=== PATIENT | female | born 1980 | race Caucasian/White ===

== ENCOUNTER 2025-01-21 06:37 | Outpatient (OUT) | payer OTHER, SELFPAY ==
--- OUTSIDE RECORDS SUMMARY | 2025-01-21 06:44 | XMS_ITS | Clinical Summary ---
Author Organization [facility] Address [address] [place] [address] Care Team Providers Care Wireless Network Engineer Name Role Phone Raji Stephen MD Primary Care Provider [phone] Nicolasa Valdivia Unavailable [phone] Allergies No known active allergies Medications MedicationSigDispense QuantityRefillsLast FilledStart DateEnd DateStatus levothyroxine (Synthroid, Levoxyl) 88 MCG tablet Indications:Acquired hypothyroidismTake 1 tablet (88 mcg) by mouth Daily 100 tablet 5Active irbesartan-hydroCHLOROthiazide (Avalide) 300-12.5 MG tablet Indications:Essential hypertensionTake 1 tablet by mouth Daily 100 tablet 5Active cyclobenzaprine (Flexeril) 10 MG tablet Indications:Spasm of right trapezius muscleTake 1 tablet (10 mg) by mouth 3 (three) times a day as needed for muscle spasms for up to 10 days 30 tablet 5Active predniSONE (Deltasone) 10 MG tablet Indications:Achilles tendinitis of both lower extremitiesTake twice daily for 5 days, then take once daily for 5 days. 15 tablet 5Active meloxicam (Mobic) 15 MG tablet Indications:Achilles tendinitis of both lower extremitiesTake 1 tablet (15 mg) by mouth Daily 90 tablet 515Active Active Problems ProblemNoted DateDiagnosed DateTrapezius muscle spasm03/03/2023 Assessment & Plan (03/03/2023 11:38 AM EST): Will add PT Will do Orphenadrine and Toradol injection discontinue Zanaflex and change to Baclofen Abnormal ycmdkgzgn83/17/2023Essential wksxjvqwvhso75/17/2023Migraine without aura and without status migrainosus, not gufckanmwkn83/17/2023Morbidly obese 11/06/2022Severe acute respiratory syndrome coronavirus 2 (SARS-CoV-2) detected 11/06/20228336Ybrbbluyzsrzsh33/29/2011 Resolved Problems ProblemNoted DateDiagnosed DateResolved DateAspiration pneumonia of right middle lobe due to regurgitated food/ Assessment & Plan (04/14/2023 10:41 AM EST): Add Probiotic to help replenish the good bacteria that are destroyed by the Antibiotics Florastor Florajen Align or try Activia in Yogurt Probiotics reduce the risk of antibiotic induced diarrhea If NB consider Xray Consider Bronchoscopy Strain of right trapezius bfgmwv47Injury of right brachial qlyuyw97ute low back pain with nwwjoonf95 Encounters DateTypeDepartmentCare EmeiVmyzizxdprf01/29/2025 2:30 PM EDTOffice Visit [facility] [address] [place] [address] Dinh Raygoza, DPM Achilles tendinitis of both lower extremities (Primary Dx); Pain in both feet; Equinus contracture of left ankle; Equinus contracture of right ankle12/19/2024amboo flowsheet [facility] [address] [place] [address] Dinh Raygoza DPM 12/19/20245771Ssjvzx10/26/9550Dmbqij06/22/7366Pyvzah65/20/2025 4:15 PM EDTAncillary Procedure [facility] [address] [place] [address] 11/09/2024 4:10 PM EDTAncillary Procedure [facility] [address] [place] [address] 11/09/2024 3:30 PM EDTOffice Visit [facility] [address] [place] [address] Dinh Raygoza DPM Achilles tendinitis of both lower extremities (Primary Dx); Bursitis of right ankle; Chronic pain of right ankle; Pain in both feet; Equinus contracture of left ankle; Equinus contracture of right ankle11/09/2024amboo flowsheet [facility] [address] [place] [address] Dinh Raygoza DPM 11/09/20241668Rszeos04/19/2025Travelfrom Last 3 Months Family History Medical HistoryRelationNameCommentsOvarian cancerMaternal GrandmotherThyroid diseaseMotherMotherRelationNameStatusCommentsMaternal GrandmotherMotherMother AliveSisterAliveSon 1x3Son 2AliveSon 3Alive Social History Tobacco UseTypesPacks/DayYears UsedDateSmoking Tobacco: NeverSmokeless Tobacco: Never Tobacco Cessation:Counseling Given: Not Answered Alcohol UseStandard Drinks/WeekCommentsYes2 (1 standard drink = 0.6 oz pure alcohol)Caffeine intake: rarelyHumiliation, Afraid, Rape, and Kick questionnaire AnswerDate RecordedWithin the last year, have you been afraid of your partner or ex-partner?No11/07/2022Within the last year, have you been humiliated or emotionally abused in other ways by your partner or ex-partner?No11/07/2022 Within the last year, have you been kicked, hit, slapped, or otherwise physically hurt by your partner or ex-partner?No11/07/2022Within the last year, have you been raped or forced to have any kind of sexual activity by your part ner or ex-partner?11/07/2022Social Connection and Isolation PanelAnswerDate RecordedIn a typical week, how many times do you talk on the phone with family, friends, or neighbors?More than three times a week11/07/2022How often do you get together with friends or relatives?Once a week11/07/2022How often do you attend jehovah's witness or restorationism services?1 to 4 times per year11/07/2022o you belong to any clubs or organizations such as jehovah's witness groups, unions, fraternal or athletic grover ups, or school groups?No11/07/2022How often do you attend meetings of the clubs or organizations you belong to?Patient qulmdqfg74/18/2023re you , , , , never , or living with a partner? 11/07/2022UDIT-CAnswerDate RecordedQ1: How often do you have a drink containing alcohol?Monthly or less01/12/2023Q2: How many drinks containing alcohol do you have on a typical day when you are drinking?1 or Q3: How often do you have six or more drinks on one occasion?Less than ekdxaky3501/12/2023Overall Financial Resource Strain (CARDIA)AnswerDate RecordedHow hard is it for you to pay for the very basics like food, housing, medical care, and heating?Not hard at all11/07/2022HQ-2AnswerDate RecordedPatient Health Questionnaire-2 Score0 10/13/2024[facility] [place] [facility] - Occupational Stress QuestionnaireAnswerDate RecordedDo you feel stress - tense, restless, nervous, or anxious, or unable to sleep at night because yourmind is troubled all the time - these days?To some psvqwp6211/07/2022Exercise Vital SignAnswerDate Recorded On average, how many days per week do you engage in moderate to strenuous exercise (like a brisk walk)?3 days11/07/2022On average, how many minutes do you engage in exercise at this level?40 min11/07/2022Hunger Vital SignAnswerDate RecordedWithin the past 12 months, you worried that your food would run out before you got the money to buymore.Never true11/07/2022Within the past 12 months, the food you bought just didn't last and you didn't have money to get more.Never true11/07/2022RAPARE - TransportationAnswerDate RecordedIn the past 12 months, has lack of transportation kept you from medical appointments or from getting medications?No11/07/2022In the past 12 months, has lack of transportation kept you from meetings, work, or from getting things needed for daily living?No11/07/2022Housing Stability Vital SignAnswerDate RecordedIn the last 12 months, was there a time when you were not able to pay the mortgage or rent on time?No11/07/2022In the last 12 months, how many places have you lived?1 11/07/2022In the last 12 months, was there a time when you did not have a steady place to sleep or slept in magnoliaelter (including now)?No11/07/2022Comments NoSex and Gender InformationValueDate RecordedSex Assigned at BirthFemale 10/31/2022 7:42 AM EDTLegal RdqDajzmu29/15/2023 7:20 PM EDTGender IdentityFemale 10/31/2022 7:42 AM EDTSexual DyxxzxlkquePhegfsgw11/11/2023 7:42 AM EDT Last Filed Vital Signs Vital SignReadingTime TakenCommentsBlood Rltnlxdg721/8407 2:00 PM EDT Bwiiu032310/13/2024 2:00 PM JOLYtthpqamyas18.1 ??C (98.8 ??F)04/14/2023 10:19 AM ESTRespiratory Nmqf837710/13/2024 2:00 PM EDTOxygen Ujncpcwwiw93%10/13/2024 2:00 PM EDTInhaled Oxygen Concentration--Sqsqax214 kg (303 lb)12/19/2024 2:26 PM EDT Yqqeno427 cm (5' 8.5 )12/19/2024 2:26 PM EDTBody Mass Index45. 2:26 PM EDT Plan of Treatment DateTypeDepartmentCare Team (Latest Contact Info)Mfggqqakmvm08/10/2025 4:00 PM ESTOffice Visit [facility] [address] [place] [address] Dinh Raygoza DPM [address] [place] [address] Health MaintenanceDue DateLast DoneCommentsCT Vtcvjznrxsgv08/30/1980Colonoscopy 1979FIT1979FOBT1979 5943Oztummawrbkws92/30/1980Influenza Vaccine (#1)11/21/20249936Jlxqkuupu16/03/35611405/23/2024, 02/03/2023, 01/15/2022, Additional history existsPap Smear/3Colorectal Cancer Bgsnfqcrd86/07/2028 FIT-DNAervical Cancer Vuulkicrs56/10/2030HPV/Cotest , 01/12/2023, 01/07/2022, Additional history exists Procedures Procedure NamePriorityDate/TimeAssociated DiagnosisCommentsXR CALCANEUS 2 VIEWS OKTHYIgbnokg16/20/2025 4:06 PM EDT Achilles tendinitis of both lower extremities Pain in both feet XR CALCANEUS 2 VIEWS BAFYTkraaqn47/20/2025 4:06 PM EDT Achilles tendinitis of both lower extremities Pain in both feet LAB COLOGUARD?? COLON CANCER UCKYUVApyyten08/07/2025 10:04 AM EDT Colon cancer screening BI MAMMOGRAM SCREENING TOMOSYNTHESIS BDOOQZXWIDjpybrj22/03/2025 5:54 PM EST Encounter for screening mammogram for malignant neoplasm of breast IGP, APT HPV,RFX 16/18,85Umdxykw67/10/2025 12:00 AM EST Encounter for gynecological examination without abnormal finding Encounter for screening for cervical cancer THINPREP TIS PAP W/REFL HPV MRNA E6/T4Sjqdmei21/23/2023 4:25 PM EDT Screening for malignant neoplasm of cervix Encounter for gynecological examination without abnormal finding from Last 3 Months or Most Recently Relevant to Health Maintenance Results * XR calcaneus 2 views right (11/09/2024 4:06 PM EDT)Anatomical RegionLaterality ModalityLower Extremities, CalcaneusRightRadiographic ImagingSpecimen (Source) Anatomical Location / LateralityCollection Method / VolumeCollection Time Received Time Narrative 11/09/2024 4:54 PM EDT Imaging Result: Lateral, calcaneal axial views are weight-bearing. ??Decreased calcaneal inclination and increased talar declination. ??Large enthesophyte at the insertion of the Achilles tendon and plantar fascia. ??Os trigonum noted over the posterior talar process. ??Calcifications noted at the insertion of the Achilles tendon. ??No fractures or dislocations noted. Authorizing ProviderResult TypeResult StatusJohnson [facility] XR PROCEDURESFinal Result * XR calcaneus 2 views left (11/09/2024 4:06 PM EDT)Anatomical RegionLaterality ModalityLower Extremities, CalcaneusLeftRadiographic ImagingSpecimen (Source) Anatomical Location / LateralityCollection Method / VolumeCollection Time Received Time Narrative 11/09/2024 4:53 PM EDT Imaging Result: Lateral, calcaneal axial views are weight-bearing. ??Decreased calcaneal inclination, increased talar declination. ??Os trigonum noted over the posterior talar process. ??Extremely large enthesophyte at the insertion of the Achilles tendon with a an enthesophyte at the insertion of the plantar fascia. ??Calcifications noted of the distal aspect of the Achilles tendon at the insertion. ??No fractures or dislocations noted. Authorizing ProviderResult TypeResult StatusOttawa County Health Center DPMI XR PROCEDURESFinal Result * Cologuard?? colon cancer screening (08/27/2024 10:04 AM EDT)ComponentValueRef RangeTest MethodAnalysis TimePerformed AtPathologist SignatureNONINV COLON CA DNA+OCC BLD SCRN STL-BHTAscqzliaAadkxuyk51/13/2025 12:34 PM EDTEXRezolve (CLIA #:[id number])Comment: The Cologuard (TM) test was performed on this specimen. NEGATIVE TEST RESULT. A negative Cologuard result indicates a low likelihood that a colorectal cancer (CRC) or advanced adenoma (adenomatous polyps with more advanced pre-malignant features) is present. The chance that a person with a negative Cologuard test has a colorectal cancer is less than 1 in 1500 (negative predictive value >99.9%) or has an advanced adenoma is less than 5.3% (negative predictive value 94.7%). These data are based on a prospective cross-sectional study of 10,000 individuals at average risk for colorectal cancer who were screened with both Cologuard and colonoscopy. (Kristal Pyle al, N Engl J Med 2014;370(14):7440-5145) The normal value (reference range) for this assay is negative. COLOGUARD RE-SCREENING RECOMMENDATION: Periodic colorectal cancer screening is an important part ofpreventive healthcare for asymptomatic individuals at average risk for colorectal cancer. Followinga negative Cologuard result, the [place] [employer] and U.S. Multi-Society Task Force screening guidelines recommend a Cologuard re-screening interval of 3 years. References: [place] [employer] Guideline for Colorectal Cancer Screening: https://www.cancer.or g/cancer/omjfc-cpqkca-wtitnr/jxenphzec-amlhrweyp-kufenwi/acs-recommendations.htm wayne.; Wayne DK, Gregoria HINSON, Mckenna CarreonK, Colorectal Cancer Screening: Recommendations for Physicians and Patients from the U.S. Multi-Society Task Force on Colorectal Cancer Screening , Am J Gastroenterology 2017; 112:8099-9533. TEST DESCRIPTION: Composite algorithmic analysis of stool DNA-biomarkers with hemoglobin immunoassay. ?? Quantitative values of individual biomarkers are not reportable and are not associated with individual biomarker result reference ranges. Cologuard is intended for colorectal cancer screening ofadults of either sex, 45 years or older, who are at average-risk for colorectal cancer (CRC). Cologuard has been approved for use by the U.S. FDA. The performance of Cologuard was established in a cross sectional study of average-risk adults aged 50-84. Cologuard performance in patients ages 45 to 49 years was estimated by sub-group analysis of near-age groups. Colonoscopies performed for a positive result may find as the most clinically significant lesion: colorectal cancer [4.0%], advanced adenoma (including sessile serrated polyps greater than or equal to 1cm diameter) [20%] or non- advanced adenoma [31%]; or no colorectal neoplasia [45%]. These estimates are derived from a prospective cross-sectional screening study of 10,000 individuals at average risk for colorectal cancer who were screened with both Cologuard and colonoscopy. (Kristal Pyle al, N Engl J Med 2014;370(14):4840-5786.) Cologuard may produce a false negative or false positive result (no colorectal cancer or precancerous polyp present at colonoscopy follow up). A negative Cologuard test result does not guarantee the absence of CRC or advanced adenoma (pre-cancer). The current Cologuard screening interval is every 3 years. ([place] [employer] and U.S. Multi-Society Task Force). Cologuard performance data in a 10,000 patient pivotal study using colonoscopy as the reference method can be accessed at the following location: www.[employer]/results. Additional description of the Cologuard test process, warnings and precautions can be found at www.[employer]rd.[employer]. Specimen (Source)Anatomical Location / LateralityCollection Method / Volume Collection TimeReceived TimeStool specimen (specimen)08/27/2024 10:04 AM EDT 08/30/2024 7:54 AM EDT Narrative Authorizing ProviderResult TypeResult StatusRocio CARIAS [facility] ORDERABLESFinal ResultPerforming OrganizationAddressCity/State/ZIP CodePhone Number [employer] (CLIA #:[id number]) [place] [address], * Bilateral screening mammogram with tomosynthesis (05/23/2024 5:54 PM EST) Anatomical RegionLateralityModalityBreastBilateralMammographySpecimen (Source) Anatomical Location / LateralityCollection Method / VolumeCollection Time Received Time05/25/2024 1:58 PM EST Impressions 05/25/2024 2:03 PM EST Impression: No specific evidence of malignancy seen in either breast. BIRADS 2 - Benign Findings DENSITY: There are scattered areas of fibroglandular density. FOLLOW-UP: Routine Screening Mammogram ELECTRONICALLY SIGNED BY: Mickey Rojo M.D. Narrative 05/25/2024 2:03 PM EST Examination: BI MAMMOGRAM SCREENING TOMOSYNTHESIS BILATERAL Clinical History: screening Technique: Screening digital mammography study of both breasts was performed with 2-D and 3-D tomosynthesis imaging. Study was compared to the prior exam dated 02/03/2023. Findings: There is no evidence of interval dominant spiculated mass, grouped microcalcifications, or skin thickening which would be suggestive of malignancy. ?? A few benign-appearing calcifications are seen bilaterally. Procedure Note Mickey Rojo MD - 05/25/2024 Examination: BI MAMMOGRAM SCREENING TOMOSYNTHESIS BILATERAL Clinical History: screening Technique: Screening digital mammography study of both breasts wasperformed with 2-D and 3-D tomosynthesis imaging. Study was compared tothe prior exam dated 02/03/2023. Findings: There is no evidence of interval dominant spiculated mass,grouped microcalcifications, or skin thickening which would be suggestiveof malignancy. A few benign-appearing calcifications are seen bilaterally. IMPRESSION: Impression: No specific evidence of malignancy seen in either breast. BIRADS 2 - Benign Findings DENSITY: There are scattered areas of fibroglandular density. FOLLOW-UP: Routine Screening Mammogram ELECTRONICALLY SIGNED BY: Mickey Rojo M.D. Authorizing ProviderResult TypeResult StatusRocio Watson MDIMJonnathan BI PROCEDURES Final Result * IGP, APT HPV,RFX 16/18,45 (05/02/2024 12:00 AM EST)ComponentValueRef RangeTest MethodAnalysis TimePerformed AtPathologist SignatureDiagnosis:CommentLABCORP Comment:NEGATIVE FOR INTRAEPITHELIAL LESION OR MALIGNANCY.Specimen Adequacy: CommentLABCORPComment: Satisfactory for evaluation. ??Endocervical and/or squamous metaplastic cells (endocervical component) are present. Clinician Provided ICD10:CommentLABCORPComment: Z01.419 Z12.4 Performed By:CommentLABCORPComment:Lupe Edmond, Occupational Therapy Technician (ASCP)Cyto Comments.LABCORPNote:CommentLABCORPComment: The Pap smear is a screening test designed to aid in the detection of premalignant and malignant conditions of the uterine cervix. ??It is not a diagnostic procedure and should not be used as the sole means of detecting cervical cancer. ??Both false-positive and false-negative reports do occur. Test Methodology:CommentLABCORPComment: This liquid based ThinPrep(R) pap test was screened with the use of an image guided system. HPV AptimaNegativeNegativeLABCORPComment: This nucleic acid amplification test detects fourteen high-risk HPV types (16,18,31,33,35,39,45,51,52,56,58,59,66,68) without differentiation. Specimen (Source)Anatomical Location / LateralityCollection Method / Volume Collection TimeReceived TimeVaginal Fluid Narrative [facility] - 05/05/2024 1:06 PM EST Performed at: 01 - [facility] ??[id number] Central Melt Specialist: Amy Emery MD, Phone: ??[phone] Performed at: ??02 - [facility] [address] ??[id number] Central Melt Specialist: Amy Emery MD, Phone: ??[phone] Specimen Comment: No. of containers..01 ThinPrep Vial Authorizing ProviderResult TypeResult StatusRocio Watson [facility] BLOOD ORDERABLESFinal ResultPerforming OrganizationAddressCity/State/ZIP CodePhone Number [facility] * THINPREP TIS PAP W/REFL HPV MRNA E6/E7 (01/12/2023 4:25 PM EDT)ComponentValue Ref RangeTest MethodAnalysis TimePerformed AtPathologist SignatureCLINICAL INFORMATIONQUESTComment:None givenLMPQUESTComment:NONE GIVENPREV. PAPQUEST Comment:NONE GIVENPREV. BXQUESTComment:NONE GIVENSOURCEQUESTComment:None given STATEMENT OF ADEQUACYQUESTComment: Satisfactory for evaluation. Endocervical/transformation zone component present. INTERPRETATION/RESULTQUESTComment: Cytology Results: Negative for intraepithelial lesion or malignancy. CYTOTECHNOLOGISTQUESTComment: [facility], CT(ASCP) CT Screening Location: [facility] [address] ??[id number] (ALWAYS MESSAGE)QUESTComment: EXPLANATORY NOTE: The Pap is a screening test for cervical cancer. It is not a diagnostic test and is subject to false negative and false positive results. It is most reliable when a satisfactory sample, regularly obtained, is submitted with relevant clinical findings and history, and when the Pap result is evaluated along with historic and current clinical information. EFFECTIVE FEBRUARY 16, 2023, the version of ThinPrep you ordered, commonly known as manual ThinPrep, will be DISCONTINUED. An alternative form of ThinPrep, called ThinPrep Imaging, will continue to be available. For a copy of the client communication (TIS Client Letter) showing TIS test codes, see www.[employer]/Resources, and navigate to [employer]>Physician Materials>TIS Client Letter. You can also call for test code assistance. Specimen (Source)Anatomical Location / LateralityCollection Method / Volume Collection TimeReceived TimeVaginal Fluid01/12/2023 4:25 PM EDT1 3:29 AM EDT Narrative Resulting Agency Comment Performing Organization Information ?Site ID: [id number] ?Name: [facility] ?Address: [address] [place] [address], [address] [place] [phone] ?Director: Haris Hood MD Authorizing ProviderResult TypeResult StatusRocio Watson MDLAB CYTOLOGY ORDERABLESFinal ResultPerforming OrganizationAddressCity/State/ZIP CodePhone Number [facility] from Last 3 Months or Most Recently Relevant to Health Maintenance Insurance Care Teams Team MemberRelationshipSpecialtyStart DateEnd Date Raji Stephen MD [address] [address] PCP - GeneralFamily Medicine07/29/22 Nicolasa Valdivia PA [address] [address] Physician AssistantFamily Medicine12/16/24
[2025-01-21 07:26] LABS: Hematocrit 36.7 % (36.0-48.0); Hemoglobin 12.2 g/dL (12.0-16.0); Immature Granulocytes Abs Auto 0.02 10^3/uL (0.00-0.03); Immature Granulocytes Pct Auto 0.3 % (0.0-0.5); Lymphocytes Absolute Auto 2.0 10^3/uL (1.2-3.8); Mean Corpuscular HGB Conc 33.2 g/dL (29.9-35.2); Mean Corpuscular Hemoglobin 32.0 pg (26.7-34.0); Mean Corpuscular Volume 96.3 fL (81.0-99.0); Platelet Count 318 10^3/uL (150-450); Red Blood Count 3.81 10^6/uL (4.20-5.40); White Blood Count 7.4 10^3/uL (4.0-11.0)
[2025-01-21 07:34] LABS: Cholesterol 202 mg/dL (<=200); HDL Cholesterol 74 mg/dL (40-60); Triglycerides 100 mg/dL (<=150); VLDL CHOLESTEROL 20.0 mg/dL
== END 2025-01-21 06:38 | disposition home or self-care (01) ==
LOC: LAB 06:41
PROVIDERS: PCP Physician Assistant; Visit Provider Physician Assistant
DX: Z00.00 Encounter for general adult medical examination without abnormal findings (principal); I10 Essential (primary) hypertension
CPT/HCPCS: 36415; 80061; 85025